=== PATIENT | male | born 1950 | race Caucasian/White ===

== ENCOUNTER 2017-03-03 21:25 | Emergency (ER) | payer MEDICARE, BC ==
--- NOTE | 2017-03-03 21:29 | EDM.PDOC ---
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 mg/dL Est Cr Clr Drug Dosing Estimated GFR (MDRD) mL/min Glucose (74-106) mg/dL POC Glucose (65-110) mg/dl Hemoglobin A1c (4.3-5.7) % Lactic Acid 2.1 H (0.4-2.0) mmol/L Uric Acid (2.6-7.2) mg/dL Calcium (8.5-10.1) mg/dL Phosphorus (2.6-4.7) mg/dL Magnesium (1.8-2.4) mg/dL Total Bilirubin (0.2-1.0) mg/dL AST (15-37) U/L ALT (12-78) U/L Alkaline Phosphatase (46-116) IU/L Total Protein (6.4-8.2) g/dL Albumin (3.4-5.0) g/dL Amylase (25-115) U/L Lipase (73-393) U/L TSH, Ultra Sensitive (0.358-3.740) mIU/mL Specimen Type Urine Color Urine Appearance Urine pH (5.0-9.0) Ur Specific [place] (1.005-1.030) Urine Protein (NEGATIVE) mg/dL Urine Glucose (UA) (NEGATIVE) mg/dL Urine Ketones (NEGATIVE) mg/dL Urine Occult Blood (NEGATIVE) Urine Nitrite (NEGATIVE) Urine Bilirubin (NEGATIVE) Urine Acetone (NEGATIVE) Urine Urobilinogen (0.2-1.0) E.U./dL Ur Leukocyte Esterase (NEGATIVE) Urine RBC /HPF Urine WBC /HPF Ur Epithelial Cells /LPF Urine Bacteria (NONE TO FEW) /HPF Ethyl Alcohol 0.004 (0.000-0.080) g/dL Ketones Negative H. pylori IgG Antibody (NEGATIVE) 03/03/17 03/03/17 03/04/17 Range/Units 21:45 21:45 00:50 WBC (4.0-10.2) K/uL RBC (4.33-5.41) M/uL Hgb (13.1-16.8) g/dL Hct (39.0-49.0) % MCV (84.0-98.0) fL MCH (28.2-33.3) pg MCHC (31.7-36.0) g/dL RDW (11.2-14.1) % Plt Count (150-350) K/uL Neut % (Auto) (45.0-80.0) % Lymph % (Auto) (10.0-50.0) % [place] % (Auto) (2.0-14.0) % Eos % (Auto) (0.0-5.0) % Baso % (Auto) (0.0-2.0) % Neut # (Auto) (1.40-7.00) K/uL Lymph # (Auto) (0.50-3.50) K/uL [place] # (Auto) (0.00-1.00) K/uL Eos # (Auto) (0.00-0.50) K/uL Baso # (Auto) (0.00-0.20) K/uL PT (9.8-11.7) SEC INR APTT (23.5-30.0) SEC Sodium (136-145) mmol/L Potassium (3.5-5.1) mmol/L Chloride (98-107) mmol/L Carbon Dioxide (21.0-32.0) mmol/L BUN (7-18) mg/dL Creatinine (0.51-1.17) mg/dL Est Cr Clr Drug Dosing Estimated GFR (MDRD) mL/min Glucose 417 H* (74-106) mg/dL POC Glucose (65-110) mg/dl Hemoglobin A1c (4.3-5.7) % Lactic Acid (0.4-2.0) mmol/L Uric Acid (2.6-7.2) mg/dL Calcium (8.5-10.1) mg/dL Phosphorus (2.6-4.7) mg/dL Magnesium (1.8-2.4) mg/dL Total Bilirubin (0.2-1.0) mg/dL AST (15-37) U/L ALT (12-78) U/L Alkaline Phosphatase (46-116) IU/L Total Protein (6.4-8.2) g/dL Albumin (3.4-5.0) g/dL Amylase (25-115) U/L Lipase (73-393) U/L TSH, Ultra Sensitive (0.358-3.740) mIU/mL Specimen Type Urincc Urine Color Yellow Urine Appearance Clear Urine pH 5.5 (5.0-9.0) Ur Specific [place] <= 1.005 (1.005-1.030) Urine Protein Negative (NEGATIVE) mg/dL Urine Glucose (UA) >=1000 H (NEGATIVE) mg/dL Urine Ketones 15 H (NEGATIVE) mg/dL Urine Occult Blood Trace-lysed H (NEGATIVE) Urine Nitrite Negative (NEGATIVE) Urine Bilirubin Negative (NEGATIVE) Urine Acetone Moderate H (NEGATIVE) Urine Urobilinogen 1.0 (0.2-1.0) E.U./dL Ur Leukocyte Esterase Negative (NEGATIVE) Urine RBC 0-5 /HPF Urine WBC 0-5 /HPF Ur Epithelial Cells Few /LPF Urine Bacteria Few (NONE TO FEW) /HPF Ethyl Alcohol (0.000-0.080) g/dL Ketones H. pylori IgG Antibody (NEGATIVE) 03/04/17 03/04/17 Range/Units 01:44 02:40 WBC (4.0-10.2) K/uL RBC (4.33-5.41) M/uL Hgb (13.1-16.8) g/dL Hct (39.0-49.0) % MCV (84.0-98.0) fL MCH (28.2-33.3) pg MCHC (31.7-36.0) g/dL RDW (11.2-14.1) % Plt Count (150-350) K/uL Neut % (Auto) (45.0-80.0) % Lymph % (Auto) (10.0-50.0) % [place] % (Auto) (2.0-14.0) % Eos % (Auto) (0.0-5.0) % Baso % (Auto) (0.0-2.0) % Neut # (Auto) (1.40-7.00) K/uL Lymph # (Auto) (0.50-3.50) K/uL [place] # (Auto) (0.00-1.00) K/uL Eos # (Auto) (0.00-0.50) K/uL Baso # (Auto) (0.00-0.20) K/uL PT (9.8-11.7) SEC INR APTT (23.5-30.0) SEC Sodium (136-145) mmol/L Potassium (3.5-5.1) mmol/L Chloride (98-107) mmol/L Carbon Dioxide (21.0-32.0) mmol/L BUN (7-18) mg/dL Creatinine (0.51-1.17) mg/dL Est Cr Clr Drug Dosing Estimated GFR (MDRD) mL/min Glucose 397 H* (74-106) mg/dL POC Glucose 291 H* (65-110) mg/dl Hemoglobin A1c (4.3-5.7) % Lactic Acid (0.4-2.0) mmol/L Uric Acid (2.6-7.2) mg/dL Calcium (8.5-10.1) mg/dL Phosphorus (2.6-4.7) mg/dL Magnesium (1.8-2.4) mg/dL Total Bilirubin (0.2-1.0) mg/dL AST (15-37) U/L ALT (12-78) U/L Alkaline Phosphatase (46-116) IU/L Total Protein (6.4-8.2) g/dL Albumin (3.4-5.0) g/dL Amylase (25-115) U/L Lipase (73-393) U/L TSH, Ultra Sensitive (0.358-3.740) mIU/mL Specimen Type Urine Color Urine Appearance Urine pH (5.0-9.0) Ur Specific [place] (1.005-1.030) Urine Protein (NEGATIVE) mg/dL Urine Glucose (UA) (NEGATIVE) mg/dL Urine Ketones (NEGATIVE) mg/dL Urine Occult Blood (NEGATIVE) Urine Nitrite (NEGATIVE) Urine Bilirubin (NEGATIVE) Urine Acetone (NEGATIVE) Urine Urobilinogen (0.2-1.0) E.U./dL Ur Leukocyte Esterase (NEGATIVE) Urine RBC /HPF Urine WBC /HPF Ur Epithelial Cells /LPF Urine Bacteria (NONE TO FEW) /HPF Ethyl Alcohol (0.000-0.080) g/dL Ketones H. pylori IgG Antibody (NEGATIVE) Accu-Chek 291 mg percent prior to transfer Microbiology 03/03/17 21:35 Influenza Type A Antigen Screen - Final Nasopharyngeal Swab - Nare, Left NEGATIVE INFLUENZA A VIRUS AG Influenza Type B Antigen Screen - Final NEGATIVE INFLUENZA B VIRUS AG Meds: Medications Generic Name Dose Route Start Last Admin Trade Name Freq PRN Reason Stop Dose Admin Insulin Human Regular 100 unit 100 mls @ 12.9 mls/hr 03/03/17 23:06 03/03/17 23:41 / Sodium Chloride IV 0.1 unit/kg/hr TITRATE SANJEEV 12.9 mls/hr Protocol Administration 0.1 UNIT/KG/HR Sodium Chloride 1,000 mls @ 30 mls/hr 03/03/17 23:15 03/03/17 23:46 Normal Saline IV 30 mls/hr ASDIRECTED SANJEEV Administration Lactated Ringer's 1,000 mls @ 100 mls/hr 03/03/17 23:45 03/04/17 00:07 Ringers, Lactated IV 100 mls/hr ASDIRECTED SANJEEV Administration Sodium Chloride 10 ml 03/03/17 21:33 Saline Flush FLUSH ASDIRECTED PRN Keep Vein Open Sodium Chloride 10 ml 03/03/17 23:05 Saline Flush FLUSH ASDIRECTED PRN Keep Vein Open Discontinued Medications Generic Name Dose Route Start Last Admin Trade Name Freq PRN Reason Stop Dose Admin Famotidine 40 mg 03/03/17 21:37 03/03/17 22:05 Pepcid IVPUSH 03/03/17 21:38 40 mg ONETIME ONE Administration Sodium Chloride 1,000 mls @ 999 mls/hr 03/03/17 21:33 03/03/17 21:48 Normal Saline IV 03/03/17 22:33 999 mls/hr .BOLUS ONE Administration Sodium Chloride 1,000 mls @ 100 mls/hr 03/03/17 23:15 03/03/17 23:19 Normal Saline IV 100 mls/hr ASDIRECTED SANJEEV Administration Insulin Human Regular 10 unit 03/04/17 21:36 Humulin R IVPUSH 03/04/17 21:37 ONETIME ONE Protocol Insulin Human Regular 10 unit 03/03/17 21:36 03/03/17 22:13 Humulin R IVPUSH 03/03/17 21:37 10 unit ONETIME ONE Administration Protocol Nicotine 21 mg 03/04/17 00:26 03/04/17 00:38 Habitrol TRDERM 03/04/17 00:27 21 mg ONETIME ONE Administration Pantoprazole Sodium 40 mg 03/03/17 21:37 03/03/17 22:00 Protonix Iv IVPUSH 03/03/17 21:38 40 mg ONETIME ONE Administration Potassium Chloride 40 meq 03/03/17 23:52 03/04/17 00:04 Klor-Con M20 PO 03/03/17 23:53 40 meq ONETIME ONE Administration - Radiology Interpretation Free Text/Narrative:: Prevention Rn showed normal sinus rhythm with heart rate in the 70s to 80s with occasional PVCs noted with no ectopy or arrhythmia Acute abdominal x-rays showed evidence of moderate to severe diffuse bowel gas, including obstructive pattern with minimal stool in the rectal vault, however no free air. Moderate COPD and pulmonary fibrotic changes, including probable pulmonary hypertension with additional severe cardiomegaly but no CHF or pulmonary infiltrates. Moderate stool also present Departure - Departure Time of Disposition: 02:55 Disposition: DC/Tfer to Acute Hospital 02 Condition: fair Clinical Impression: Confusion, Hyponatremia, Hypokalemia, Lactic acid acidosis, Hyperbilirubinemia , Heart disease, Tobacco abuse counseling Diabetic ketoacidosis Qualifiers: Diabetes mellitus type: type 2 Diabetes mellitus complication detail: without coma Qualified Code(s): E13.10 - Other specified diabetes mellitus with ketoacidosis without coma Diabetes mellitus Qualifiers: Diabetes mellitus type: type 2 Diabetes mellitus complication status: with neurologic complications Diabetes mellitus complication detail: with polyneuropathy Diabetes mellitus long-term insulin use: with long-term use Qualified Code(s): E11.42 - Type 2 diabetes mellitus with diabetic polyneuropathy Pancreatitis Qualifiers: Chronicity: acute Pancreatitis type: other Acute pancreatitis complication: unspecified Qualified Code(s): K85.80 - Other acute pancreatitis without necrosis or infection COPD (chronic obstructive pulmonary disease) Qualifiers: COPD type: emphysema Emphysema type: panlobular Qualified Code(s): J43.1 - Panlobular emphysema Osteoarthritis Qualifiers: Osteoarthritis location: multiple joints Osteoarthritis type: primary Qualified Code(s): M15.0 - Primary generalized (osteo)arthritis Hypertension Qualifiers: Hypertension type: essential hypertension Qualified Code(s): I10 - Essential ( primary) hypertension Referrals: Jerald Hall NP [Primary Care Provider] - Forms: ED Department Discharge, Interfacility Transfer EMTALA - Problem List & Annotations (1) Diabetic ketoacidosis SNOMED Code(s): 342701423, 951073512 Code(s): E13.10 - OTH DIABETES MELLITUS WITH KETOACIDOSIS WITHOUT COMA Status: Acute Priority: High Current Visit: Yes Onset Date: 03/03/17 Annotation/Comment:: Patient started on normal saline immediately on arrival with initial 1 L IV bolus. Patient also given 10 units of Humulin regular insulin IV after venous blood sugar results were obtained. Humulin Regular Insulin infusion was also started prior to patient's discharge with venous blood sugar taken prior to transfer. Note mild ketoacidosis and lactic acid elevation. Continue normal saline fluids in route at 100 cc per hour. Telephone consultation at 22:[address] Pastor, hospitalist at [facility] in [place], who does accept the patient for further treatment and evaluation. No other treatment recommendations were given. Note delayed transport as below. Hourly venous blood sugars taken with excellent response to insulin infusion. Accu-Chek immediately prior to transfer was 291 mg percent. The paramedics will take Accu-Chek in route and DC the IV insulin infusion for blood sugars less than 250 mg percent. Renal panel recommended immediately upon arrival of the patient to the [facility] Qualifiers: Diabetes mellitus type: type 2 Diabetes mellitus complication detail: without coma Qualified Code(s): E13.10 - Other specified diabetes mellitus with ketoacidosis without coma (2) Diabetes mellitus SNOMED Code(s): 80015629 Code(s): E11.9 - TYPE 2 DIABETES MELLITUS WITHOUT COMPLICATIONS Status: Acute Priority: High Current Visit: Yes Annotation/Comment:: Recently changed to Victoza. No previous insulin therapy. Note compensated ketoacidosis as above with probable newly diagnosed long-term insulin requirement. Patient does have a history of diabetic neuropathy. 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 No other neurological deficits. Continue to observe closely by the accepting physician (4) Pancreatitis SNOMED Code(s): 78542799 Code(s): K85.90 - ACUTE PANCREATITIS WITHOUT NECROSIS OR INFECTION, UNSP Status: Acute Priority: High Current Visit: Yes Onset Date: 03/03/17 Annotation/Comment:: Telephone consultation as above. Accepting physician agrees to have CT scan of the abdomen and pelvis conducted in their facility to facilitate patient transfer. Unfortunately significant difficulty obtaining ambulance transfer with ambulance from [place] coming to this facility. No sequelae from delay of transfer. Note that high dose IV Pepcid and IV Protonix was given immediately upon arrival to the emergency room and patient kept n.p.o. Qualifiers: Chronicity: acute Pancreatitis type: other Acute pancreatitis complication: unspecified Qualified Code(s): K85.80 - Other acute pancreatitis without necrosis or infection (5) COPD (chronic obstructive pulmonary disease) SNOMED Code(s): 10753612 Code(s): J44.9 - CHRONIC OBSTRUCTIVE PULMONARY DISEASE, UNSPECIFIED Status : Chronic Priority: Medium Current Visit: Yes Annotation/Comment:: Stable by history with no recent fever or bronchitic-type symptoms. Note history of sleep apnea with patient compliant with his CPAP with last dose at 7 cm of water with no additional oxygen. The patient's own CPAP machine was sent with patient Qualifiers: COPD type: emphysema Emphysema type: panlobular Qualified Code(s): J43.1 - Panlobular emphysema (6) Hyperbilirubinemia SNOMED Code(s): 27822006 Code(s): E80.6 - OTHER DISORDERS OF BILIRUBIN METABOLISM Status: Acute Priority: Medium Current Visit: Yes Onset Date: 03/03/17 Annotation/ Comment:: Mild hyperbilirubinemia with further workup depending on his clinical course. CT scan of the abdomen and pelvis as above (7) Hypertension SNOMED Code(s): 93152682 Code(s): I10 - ESSENTIAL (PRIMARY) HYPERTENSION Status: Chronic Priority : Medium Current Visit: Yes Annotation/Comment:: Under good control in the emergency room Qualifiers: Hypertension type: essential hypertension Qualified Code(s): I10 - Essential (primary) hypertension (8) Hypokalemia SNOMED Code(s): 96962304 Code(s): E87.6 - HYPOKALEMIA Status: Acute Priority: High Current Visit : Yes Onset Date: 03/03/17 Annotation/Comment:: Change normal saline infusion to lactated Ringer's secondary to hypokalemia and insulin infusion. Oral potassium chloride also given as above. Continue to observe his renal status, etc. closely (9) Hyponatremia SNOMED Code(s): 79419670 Code(s): E87.1 - HYPO-OSMOLALITY AND HYPONATREMIA Status: Acute Priority : High Current Visit: Yes Onset Date: 03/03/17 Annotation/Comment:: Confusion likely secondary to significant hyponatremia as above. IV fluids as above (10) Lactic acid acidosis SNOMED Code(s): 53801953 Code(s): E87.2 - ACIDOSIS Status: Acute Priority: High Current Visit: Yes Onset Date: 03/03/17 Annotation/Comment:: Ketoacidosis as well as mild lactic acidosis as above. Aggressive IV fluids for now. Repeat lactic acid level on arrival to the [facility] in [place] (11) Osteoarthritis SNOMED Code(s): 955747127 Code(s): M19.90 - UNSPECIFIED OSTEOARTHRITIS, UNSPECIFIED SITE Status: Chronic Priority: Medium Current Visit: Yes Annotation/Comment:: Stable by patient history Qualifiers: Osteoarthritis location: multiple joints Osteoarthritis type: primary Qualified Code(s): M15.0 - Primary generalized (osteo)arthritis (12) Heart disease SNOMED Code(s): 18432087 Code(s): I51.9 - HEART DISEASE, UNSPECIFIED Status: Chronic Priority: Medium Current Visit: Yes Annotation/Comment:: Borderline inferior coronary artery disease by distant Cardiolite scan as above with no recent chest pain or anginal complaints. Only very occasional PVCs noted today (13) Tobacco abuse counseling SNOMED Code(s): 483495860, 904628236, 489462221 Code(s): Z71.6 - TOBACCO ABUSE COUNSELING Status: Acute Priority: Medium Current Visit: Yes Annotation/Comment:: NicoDerm started in the emergency room per the patient's request. Tobacco cessation information provided to the patient's with tobacco cessation strongly encouraged - Problem List Review Problem List Initiated/Reviewed/Updated: Yes - My Orders Last 24 Hours: My Active Orders 03/03/17 21:29 Resuscitation Status Routine 03/03/17 21:30 Blood Glucose Check, Bedside [RC] STAT Cardiac Monitoring [RC] . DIRECTED Abdomen Series w Chest 1V [CR] Stat 03/03/17 21:31 Obtain Past Medical Record [OM.PC] Routine 03/03/17 21:32 Peripheral IV Insertion Adult [OM.PC] Stat 03/03/17 21:33 Peripheral IV Care [RC] . DIRECTED Sodium Chloride 0.9% [Saline Flush] 10 ml FLUSH ASDIRECTED PRN 03/03/17 21:45 CULTURE URINE [RM] Routine 03/03/17 23:05 Peripheral IV Care [RC] . DIRECTED Sodium Chloride 0.9% [Saline Flush] 10 ml FLUSH ASDIRECTED PRN Peripheral IV Insertion Adult [OM.PC] Routine 03/03/17 23:06 Insulin Regular, Human [HumuLIN R] 100 unit Sodium Chloride 0.9% [Normal Saline] 99 ml IV TITRATE 03/03/17 23:15 Sodium Chloride 0.9% [Normal Saline] 1,000 ml IV ASDIRECTED 03/03/17 23:45 Lactated Ringers [Ringers, Lactated] 1,000 ml IV ASDIRECTED 03/03/17 Breakfast Nothing per Oral Now Diet [DIET] 03/04/17 02:36 Blood Glucose Check, Bedside [RC] STAT - Assessment/Plan Last 24 Hours: My Active Orders 03/03/17 21:29 Resuscitation Status Routine 03/03/17 21:30 Blood Glucose Check, Bedside [RC] STAT Cardiac Monitoring [RC] . DIRECTED Abdomen Series w Chest 1V [CR] Stat 03/03/17 21:31 Obtain Past Medical Record [OM.PC] Routine 03/03/17 21:32 Peripheral IV Insertion Adult [OM.PC] Stat 03/03/17 21:33 Peripheral IV Care [RC] . DIRECTED Sodium Chloride 0.9% [Saline Flush] 10 ml FLUSH ASDIRECTED PRN 03/03/17 21:45 CULTURE URINE [RM] Routine 03/03/17 23:05 Peripheral IV Care [RC] . DIRECTED Sodium Chloride 0.9% [Saline Flush] 10 ml FLUSH ASDIRECTED PRN Peripheral IV Insertion Adult [OM.PC] Routine 03/03/17 23:06 Insulin Regular, Human [HumuLIN R] 100 unit Sodium Chloride 0.9% [Normal Saline] 99 ml IV TITRATE 03/03/17 23:15 Sodium Chloride 0.9% [Normal Saline] 1,000 ml IV ASDIRECTED 03/03/17 23:45 Lactated Ringers [Ringers, Lactated] 1,000 ml IV ASDIRECTED 03/03/17 Breakfast Nothing per Oral Now Diet [DIET] 03/04/17 02:36 Blood Glucose Check, Bedside [RC] STAT Assessment:: As above Plan: As above. Extensive precautions were given to the patient and his , who are in agreement with the treatment plan. Ambulance transfer with graphic engineer accompaniment
[2017-03-03] MEDS ORDERED: Sodium Chloride 0.9% 1,000 ML IV ONE (21:33)
[2017-03-03] MEDS ORDERED: Sodium Chloride 0.9% 10 ML Syringe FLUSH PRN ×2 (21:33→23:05)
[2017-03-03] MEDS ORDERED: Insulin Regular, Human 100 Units/ML 3 ML Vial IVPUSH ONE (21:36)
[2017-03-03] MEDS ORDERED: Famotidine 20 MG/2 ML SDV IVPUSH ONE (21:37)
[2017-03-03] MEDS ORDERED: Pantoprazole 40 MG Vial IVPUSH ONE (21:37)
[2017-03-03 22:01] LABS: CHLORIDE,CL 83 mmol/L (98-107); SODIUM,NA 128 mmol/L (136-145)
[2017-03-03] MEDS ORDERED: Sodium Chloride 0.9% 1,000 ML IV SCH ×2 (23:15)
[2017-03-03] MEDS ORDERED: Lactated Ringers 1,000 ML IV SCH (23:45)
[2017-03-03] MEDS ORDERED: Potassium Chloride 20 MEQ Tab.ER PO ONE (23:52)
[2017-03-04] MEDS ORDERED: Nicotine 21 MG/24 Hr Patch TRDERM ONE (00:26)
[2017-03-04 02:28] VITALS: BP 108/65
[2017-03-04] MEDS ORDERED: Insulin Regular, Human 100 Units/ML 3 ML Vial IVPUSH ONE (21:36)
== END 2017-03-04 03:00 ==
LOC: LL.ED 21:25
DX: E13.10 Other specified diabetes mellitus with ketoacidosis without coma (principal); E11.42 Type 2 diabetes mellitus with diabetic polyneuropathy; K85.80 Other acute pancreatitis without necrosis or infection; J43.1 Panlobular emphysema; M15.0 Primary generalized (osteo)arthritis; E80.6 Other disorders of bilirubin metabolism; E87.6 Hypokalemia; Z88.0 Allergy status to penicillin; Z88.8 Allergy status to other drugs, medicaments and biological substances; Z79.899 Other long term (current) drug therapy; I25.10 Atherosclerotic heart disease of native coronary artery without angina pectoris; E78.00 Pure hypercholesterolemia, unspecified; I10 Essential (primary) hypertension; J45.909 Unspecified asthma, uncomplicated; F17.210 Nicotine dependence, cigarettes, uncomplicated; Z72.0 Tobacco use
CPT/HCPCS: 36415; 74022; 80053; 81001; 81003; 82009; 82150; 82947; 82962; 83036; 83605; 83690; 83735; 84100; 84443; 84550; 85025; 85610; 85730; 86318; 87086; 87804; 96360; 96361; 96365; 96366; 96375; 96376; 99284; 99285; A9270; C9113; G0480; J1815; J7030; J7120; S0028

== ENCOUNTER 2019-06-21 20:45 | Emergency (ER) | payer MEDICARE, BC ==
[2019-06-21 21:24] VITALS: BP 145/69; PULSE 74
[2019-06-21] MEDS ORDERED: Bacitracin/Neomycin/Polymyxin B Oint 0.9 GM U/D Packet TOP ONE (21:36)
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
== END 2019-06-21 22:05 | disposition home or self-care (01) ==
LOC: LL.ED 20:45
DX: S22.31XA Fracture of one rib, right side, initial encounter for closed fracture (principal); S80.812A Abrasion, left lower leg, initial encounter; I10 Essential (primary) hypertension; I25.10 Atherosclerotic heart disease of native coronary artery without angina pectoris; E66.9 Obesity, unspecified; M19.90 Unspecified osteoarthritis, unspecified site; E11.42 Type 2 diabetes mellitus with diabetic polyneuropathy; F17.210 Nicotine dependence, cigarettes, uncomplicated; Z91.018 Allergy to other foods; Z98.49 Cataract extraction status, unspecified eye; Z96.22 Myringotomy tube(s) status; Z88.0 Allergy status to penicillin; Z88.8 Allergy status to other drugs, medicaments and biological substances; Z88.6 Allergy status to analgesic agent; Z91.013 Allergy to seafood; V57.4XXA Person boarding or alighting a pick-up truck or van injured in collision with fixed or stationary object, initial encounter
CPT/HCPCS: 71101-RT; 99283; 99283-25

== ENCOUNTER 2020-10-16 16:36 | Emergency (ER) | payer MEDICARE, BC ==
[2020-10-16 16:54] VITALS: PULSE 84
[2020-10-16] MEDS ORDERED: Bacitracin/Neomycin/Polymyxin B Oint 0.9 GM U/D Packet TOP ONE (17:23)
[2020-10-16 17:44] VITALS: BP 157/73
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
== END 2020-10-16 18:41 | disposition home or self-care (01) ==
LOC: LL.ED 16:36
DX: S40.011A Contusion of right shoulder, initial encounter (principal); S10.93XA Contusion of unspecified part of neck, initial encounter; S00.31XA Abrasion of nose, initial encounter; S00.81XA Abrasion of other part of head, initial encounter; S60.511A Abrasion of right hand, initial encounter; I25.10 Atherosclerotic heart disease of native coronary artery without angina pectoris; E78.00 Pure hypercholesterolemia, unspecified; I10 Essential (primary) hypertension; J44.9 Chronic obstructive pulmonary disease, unspecified; E11.42 Type 2 diabetes mellitus with diabetic polyneuropathy; F17.210 Nicotine dependence, cigarettes, uncomplicated; E66.9 Obesity, unspecified; Z68.36 Body mass index [BMI] 36.0-36.9, adult; Z88.8 Allergy status to other drugs, medicaments and biological substances; Z91.018 Allergy to other foods; Z91.013 Allergy to seafood; Z88.0 Allergy status to penicillin; Z79.4 Long term (current) use of insulin; Z79.899 Other long term (current) drug therapy; W19.XXXA Unspecified fall, initial encounter
CPT/HCPCS: 70450; 70486; 72125; 73030-RT; 99283; 99284-25